=== PATIENT | male | born 1980 | race Caucasian/White ===

== ENCOUNTER 2018-03-19 22:18 | Emergency (ER) | payer OTHER ==
[~2018-03-19] VITALS: Ht 177.8 cm; Wt 79.4 kg
[2018-03-19 22:39] VITALS: BP 125/95
[2018-03-20 02:24] VITALS: BP 125/95
[2018-03-20] MEDS: NEOMYCIN OP ONE (02:33)
[2018-03-20] MEDS: POLYMYXIN OP ONE (02:33)
[2018-03-20] MEDS: [UNRECOGNIZED DRUG - OTHER] OP ONE (02:33)
== END 2018-03-20 02:24 | disposition home or self-care (01) ==
LOC: MED 22:18
DX: H57.13 Ocular pain, bilateral (principal)
CPT/HCPCS: 99283